=== PATIENT | female | born 1995 | race Caucasian/White ===

== ENCOUNTER 2017-05-27 13:52 | Emergency (ER) | payer MEDICAID, OTHER ==
[~2017-05-27] VITALS: Ht 152.4 cm; Wt 59.0 kg
[2017-05-27 14:59] VITALS: BP 140/82
[2017-05-27] MEDS ORDERED: KETOROLAC TROMETH 60MG/2ML VIAL IM ONE (15:15)
== END 2017-05-27 16:14 | disposition home or self-care (01) ==
LOC: ER 13:52
DX: G43.009 Migraine without aura, not intractable, without status migrainosus (principal)
CPT/HCPCS: 70450; 81025; 96372; 99284; J1885